=== PATIENT | male | born 1965 | race Hispanic/Latino ===

== ENCOUNTER 2021-01-13 21:53 | Inpatient (IN) | payer OTHER ==
[2021-01-13] MEDS: LIDOCAINE (2%) 20 MG/1 ML VIAL 20 ML MDV INFILTRATI ONE ×2 (10:38→22:38)
[2021-01-13] MEDS: fentaNYL 100 MCG/2 ML INJ ONE ×3 (10:39→22:58)
[2021-01-13] MEDS: MIDAZOLAM 2 MG/2 ML INJ ONE ×3 (10:39→22:59)
[2021-01-13] MEDS: HEPARIN 10,000 UNITS/10 ML VIAL ONE ×5 (10:40→23:13)
[2021-01-13] MEDS: VERAPAMIL 5 MG/2 ML INJ ONE ×2 (10:41→22:41)
[2021-01-13] MEDS ORDERED: HEPARIN/ 0.45% NACL DRIP 25,000 UNIT/500 ML BAG IV SCH (22:00)
[2021-01-13] MEDS ORDERED: HEPARIN 10,000 UNITS/10 ML VIAL IV ONE (22:00)
[2021-01-13] MEDS ORDERED: HEPARIN 10,000 UNITS/10 ML VIAL IV PRN ×2 (22:00→22:21)
[2021-01-13] MEDS ORDERED: ONDANSETRON 4 MG/2 ML INJ IV ONE (22:00)
[2021-01-13] MEDS ORDERED: SODIUM CHLORIDE 0.9% 500 ML 500 ML IV ONE (22:02)
[2021-01-13] MEDS ORDERED: NITROGLYCERIN 0.4 MG TAB SUBL SL PRN (22:02)
[2021-01-13] MEDS ORDERED: MORPHINE 4 MG/1 ML INJ IV ONE (22:02)
--- NOTE | 2021-01-13 22:15 | Emergency Department Report ---
ED Chest Pain HPI - General Chief Complaint: Chest Pain Stated Complaint: code stemi PUI?: No Time Seen by Provider: 01/13/21 21:59 Source: patient, EMS (Verbal report received from emergency medical services. EMS documentation not available at time of chart dictation ), RN notes reviewed Mode of arrival: Stretcher Limitations: Physical Limitation - History of Present Illness Initial Comments: The patient was evaluated in the emergency department for symptoms described in the history of present illness. He/she was evaluated in the context of the global COVID-19 pandemic, which necessitated consideration that the patient might be at risk for infection with the virus that causes COVID-19. Institutional protocols and algorithms that pertain to the evaluation of patients at risk for COVID-19 are in a state of rapid change based on information released by regulatory bodies including the CDC and federal and state organizations. These policies and algorithms were followed during the patient's care in the emergency department. Please note that these policies, procedures and recommendations changed on a rapid basis. The patient is a 55-year-old gentleman who is not known to myself previously. He has a past medical history of DVT, pulmonary embolism and is maintained on Eliquis. He is obese, and also is up-to-date with COVID-19 vaccination. The patient is brought to the hospital by emergency medical services as an [id number] code STEMI. Patient complains of sudden central and left-sided chest pain, associated with nausea and diaphoresis. A prehospital EKG was consistent with high lateral STEMI. The EKG was transmitted to ourselves, and in turn, interpreted by myself as a code STEMI, and then transmitted to our neonatal specialist, Dr. Meléndez, who evaluated the EKG at 9:43 PM. Code STEMI was activated overhead prehospital. EMS gave nitroglycerin and aspirin in the field. The patient denies headache, abdominal pain, hematemesis, bright red blood per rectum. He reports that he was diagnosed at [facility] last month with a DVT and PE. It appears that these are unprovoked. The patient states he last took his Eliquis earlier on today. The patient currently rates his pain as 9 out of 10. In discussion with Dr. Meléndez, aspirin was already given, heparin was recommend ed. Currently, we are awaiting arrival of the cardiac catheterization lab team. Critical care physician, Dr. Cohen, has authorized admission to the ICU for post catheterization care. Hospital physician, Dr. Perkins to admit to IMS Complaint: chest pain -: Sudden, minutes(s) Onset: during rest Pain Location: substernal, left chest Severity: severe Quality: aching Consistency: constant Improves With: nitroglycerin Worsens With: nothing re: nausea, diaphoresis, dyspnea Treatments Prior to Arrival: aspirin, nitroglycerin Aspirin use within the Past 7 Days: (1) Yes - Related Data On Oral Contraceptives: No Allergies Allergy/AdvReac Type Severity Reaction Status Date / Time No Known Allergies Allergy Verified 01/13/21 22:12 Heart Score - HEART Score History: Highly suspicious EKG: Significant ST-depression Age: 45-65 Risk factors: > 3 risk factors or hx of atherosclerotic disease Troponin: < normal limit HEART Score: 7 - EKG Read Time Time EKG Completed: 21:57 EKG Read Time: 21:57 - Critical Actions Critical Actions: >7 pts:50-65% risk of adverse cardiac event. Early invasive measures ED Review of Systems ROS: Stated complaint: CVA Other details as noted in HPI Constitutional: diaphoresis Eyes: denies: eye discharge ENT: denies: epistaxis Respiratory: denies: cough Cardiovascular: chest pain Gastrointestinal: nausea. denies: abdominal pain, hematemesis, melena, hematochezia Musculoskeletal: denies: back pain Neurological: weakness Psychiatric: anxiety Hematological/Lymphatic: denies: easy bleeding ED Past Medical Hx - Social History Smoking Status: Current Every Day Smoker ED Physical Exam - General Limitations: Physical Limitation General appearance: alert, anxious, in distress, obese - Head Head exam: Present: atraumatic, normocephalic - Eye Eye exam: Present: normal appearance, EOMI. Absent: nystagmus - ENT ENT exam: Present: normal exam, normal orophraynx, mucous membranes moist, normal external ear exam - Neck Neck exam: Present: normal inspection, full ROM. Absent: tenderness, meningism us - Respiratory Respiratory exam: Present: normal lung sounds bilaterally. Absent: respiratory distress, wheezes, rales, rhonchi, stridor, decreased breath sounds - Cardiovascular Cardiovascular Exam: Present: regular rate, normal rhythm, normal heart sounds. Absent: bradycardia, tachycardia, irregular rhythm, systolic murmur, diastolic murmur, rubs, gallop - GI/Abdominal GI/Abdominal exam: Present: soft. Absent: distended, tenderness, guarding, rebound, rigid, pulsatile mass - Rectal Rectal exam: Present: deferred - Extremities Exam Extremities exam: Present: normal inspection, full ROM, other (2+ pulses noted in the bilateral upper and lower extremities. There is no palpable cord. negative Homans sign. Muscular compartments are soft. The pelvis is stable.). Absent: pedal edema, calf tenderness - Back Exam Back exam: Present: normal inspection, full ROM. Absent: tenderness, CVA tenderness (R), CVA tenderness (L), paraspinal tenderness, vertebral tenderness - Neurological Exam Neurological exam: Present: alert, other (No facial droop. Tongue midline. Extraocular movements intact bilaterally. Facial sensation intact to light touch in V1, V2, V3 distribution bilaterally. 5 and a 5 strength in 4 extremities. Sensation intact to light touch in 4 extremities.) - Psychiatric Psychiatric exam: Present: anxious - Skin Skin exam: Present: warm, dry, intact, normal color. Absent: rash ED Course Vital Signs 01/13/21 22:03 Pulse Rate 84 Respiratory 18 Rate Blood Pressure 186/99 O2 Sat by Pulse 99 Oximetry - Reevaluation(s) Reevaluation #1: 01/13/21 22:17 Due to the time sensitive nature of code STEMI, and the patient's current condition, patient went to the cardiac catheterization lab before laboratory studies and x-rays have resulted, and obtained, respectively. We will therefore defer follow-up of these values to the inpatient team. The patient provided verbal consent to have all details of his medical care discussed with his family. DANIE score - Danie Score Age > 65: (0) No Aspirin use within the Past 7 Days: (1) Yes 3 or more CAD Risk Factors: (1) Yes 2 or more Angina events in past 24 hrs: (1) Yes Known CAD with more than 50% Stenosis: (0) No Elevated Cardiac Markers: (0) No ST Deviation Greater than 0.5mm: (1) Yes DANIE Score: 4 ED Medical Decision Making - Lab Data Result diagrams: 01/14/21 02:19 01/14/21 02:19 Vital Signs 01/13/21 22:03 Pulse Rate 84 Respiratory 18 Rate Blood Pressure 186/99 O2 Sat by Pulse 99 Oximetry Lab Results 0901/13/21 01/13/21 Range/Units 22:03 22:03 22:03 WBC 12.2 H (4.5-11.0) K/mm3 RBC 5.36 H (3.65-5.03) M/mm3 Hgb 15.6 H (11.8-15.2) gm/dl Hct 46.8 H (35.5-45.6) % MCV 87 (84-94) fl MCH 29 (28-32) pg MCHC 33 (32-34) % RDW 15.3 H (13.2-15.2) % Plt Count 313 (140-440) K/mm3 Lymph # (Auto) Dry Cure Worker Add Manual Diff Complete Total Counted 100 Seg Neuts % (Manual) 42.0 (40.0-70.0) % Lymphocytes % (Manual) 48.0 H (13.4-35.0) % Monocytes % (Manual) 8.0 H (0.0-7.3) % Eosinophils % (Manual) 1.0 (0.0-4.3) % Basophils % (Manual) 1.0 (0.0-1.8) % Nucleated RBC % Not Reportable Seg Neutrophils # Man 5.1 (1.8-7.7) K/mm3 Band Neutrophils # 0.0 K/mm3 Lymphocytes # (Manual) 5.9 H (1.2-5.4) K/mm3 Abs React Lymphs (Man) 0.0 K/mm3 Monocytes # (Manual) 1.0 H (0.0-0.8) K/mm3 Eosinophils # (Manual) 0.1 (0.0-0.4) K/mm3 Basophils # (Manual) 0.1 (0.0-0.1) K/mm3 Metamyelocytes # 0.0 K/mm3 Myelocytes # 0.0 K/mm3 Promyelocytes # 0.0 K/mm3 Blast Cells # 0.0 K/mm3 WBC Morphology Not Reportable Hypersegmented Neuts Not Reportable Hyposegmented Neuts Not Reportable Hypogranular Neuts Not Reportable Smudge Cells Not Reportable Toxic Granulation Not Reportable Toxic Vacuolation Not Reportable Dohle Bodies Not Reportable Pelger-Huet Anomaly Not Reportable Ketty Rods Not Reportable Platelet Estimate Consistent w auto Clumped Platelets Not Reportable Plt Clumps, EDTA Not Reportable Large Platelets Not Reportable Giant Platelets Not Reportable Platelet Satelliting Not Reportable Plt Morphology Comment Not Reportable RBC Morphology Not Reportable Dimorphic RBCs Not Reportable Polychromasia Not Reportable Hypochromasia Not Reportable Poikilocytosis 1+ Anisocytosis 1+ Microcytosis Not Reportable Macrocytosis Not Reportable Spherocytes Not Reportable Pappenheimer Bodies Not Reportable Sickle Cells Not Reportable Target Cells 1+ Tear Drop Cells Not Reportable Ovalocytes Not Reportable Helmet Cells Not Reportable Ca-Wyandanch Bodies Not Reportable [place] Rings Not Reportable Barb Cells Not Reportable Bite Cells Not Reportable Crenated Cell Not Reportable Elliptocytes Not Reportable Acanthocytes (Spur) Not Reportable Rouleaux Not Reportable Hemoglobin C Crystals Not Reportable Schistocytes Not Reportable Malaria parasites Not Reportable Apolinar Bodies Not Reportable Hem Pathologist Commnt No PT 13.3 (12.2-14.9) Sec. INR 0.95 (0.87-1.13) APTT 25.7 (24.2-36.6) Sec. Sodium 141 (137-145) mmol/L Potassium 3.9 (3.6-5.0) mmol/L Chloride 103.3 (98-107) mmol/L Carbon Dioxide 26 (22-30) mmol/L Anion Gap 16 mmol/L BUN 22 H (9-20) mg/dL Creatinine 0.9 (0.8-1.3) mg/dL Estimated GFR > 60 ml/min BUN/Creatinine Ratio 24 % Glucose 158 H (75-100) mg/dL Calcium 9.7 (8.4-10.2) mg/dL Total Creatine Kinase 279 H (55-170) units/L CK-MB (CK-2) 2.2 (0.0-4.0) ng/mL CK-MB (CK-2) Rel Index 0.7 (0-4) Troponin T < 0.010 (0.00-0.029) ng/mL Blood Type Antibody Screen 01/13/21 Range/Units 22:03 WBC (4.5-11.0) K/mm3 RBC (3.65-5.03) M/mm3 Hgb (11.8-15.2) gm/dl Hct (35.5-45.6) % MCV (84-94) fl MCH (28-32) pg MCHC (32-34) % RDW (13.2-15.2) % Plt Count (140-440) K/mm3 Lymph # (Auto) Add Manual Diff Total Counted Seg Neuts % (Manual) (40.0-70.0) % Lymphocytes % (Manual) (13.4-35.0) % Monocytes % (Manual) (0.0-7.3) % Eosinophils % (Manual) (0.0-4.3) % Basophils % (Manual) (0.0-1.8) % Nucleated RBC % Seg Neutrophils # Man (1.8-7.7) K/mm3 Band Neutrophils # K/mm3 Lymphocytes # (Manual) (1.2-5.4) K/mm3 Abs React Lymphs (Man) K/mm3 Monocytes # (Manual) (0.0-0.8) K/mm3 Eosinophils # (Manual) (0.0-0.4) K/mm3 Basophils # (Manual) (0.0-0.1) K/mm3 Metamyelocytes # K/mm3 Myelocytes # K/mm3 Promyelocytes # K/mm3 Blast Cells # K/mm3 WBC Morphology Hypersegmented Neuts Hyposegmented Neuts Hypogranular Neuts Smudge Cells Toxic Granulation Toxic Vacuolation Dohle Bodies Pelger-Huet Anomaly Ketty Rods Platelet Estimate Clumped Platelets Plt Clumps, EDTA Large Platelets Giant Platelets Platelet Satelliting Plt Morphology Comment RBC Morphology Dimorphic RBCs Polychromasia Hypochromasia Poikilocytosis Anisocytosis Microcytosis Macrocytosis Spherocytes Pappenheimer Bodies Sickle Cells Target Cells Tear Drop Cells Ovalocytes Helmet Cells Ca-Wyandanch Bodies [place] Rings [place] Cells Bite Cells Crenated Cell Elliptocytes Acanthocytes (Spur) Rouleaux Hemoglobin C Crystals Schistocytes Malaria parasites Apolinar Bodies Hem Pathologist Commnt PT (12.2-14.9) Sec. INR (0.87-1.13) APTT (24.2-36.6) Sec. Sodium (137-145) mmol/L Potassium (3.6-5.0) mmol/L Chloride (98-107) mmol/L Carbon Dioxide (22-30) mmol/L Anion Gap mmol/L BUN (9-20) mg/dL Creatinine (0.8-1.3) mg/dL Estimated GFR ml/min BUN/Creatinine Ratio % Glucose (75-100) mg/dL Calcium (8.4-10.2) mg/dL Total Creatine Kinase (55-170) units/L CK-MB (CK-2) (0.0-4.0) ng/mL CK-MB (CK-2) Rel Index (0-4) Troponin T (0.00-0.029) ng/mL Blood Type B POSITIVE Antibody Screen Negative - EKG Data -: EKG Interpreted by Me - EKG Data When compared to previous EKG there are: previous EKG unavailable Interpretation: acute RI 01/13/21 22:14 Prehospital EKG consistent with STEMI. ER EKG, interpreted at 21: 57. Sinus rhythm, with a left axis deviation. There is a normal P wave axis. There is ST depression in the inferior leads. There is ST elevation in the high lateral and septal leads. This EKG is abnormal. This EKG is consistent with a STEMI. - Radiology Data Radiology results: pending Critical Care Time: Yes Critical care time in (mins) excluding proc time.: 35 Critical care attestation.: If time is entered above; I have spent that time in minutes in the direct care of this critically ill patient, excluding procedure time. Critical Care Time: Critical care time includes multiple bedside reevaluations, interpretation of EKG, laboratory studies and radiology studies, time spent caring for a patient with an acute myocardial infarction, requiring activation of the cardiac catheterization lab, administration of nitroglycerin, discussion with cardiology, hospital medicine, and critical care. This does not include procedure time. ED Disposition Clinical Impression: STEMI (ST elevation myocardial infarction) Disposition: ADMITTED INPATIENT Is pt being admited?: Yes Does the pt Need Aspirin: No (Given by EMS prehospital.) Condition: Critical
[2021-01-13 22:16] LABS: Hematocrit 46.8 % (35.5-45.6); Hemoglobin 15.6 gm/dl (11.8-15.2); Mean Corpuscular HGB Conc 33 % (32-34); Mean Corpuscular Volume 87 fl (84-94); Platelet Count 313 K/mm3 (140-440); Red Blood Count 5.36 M/mm3 (3.65-5.03); Red Cell Distribution Width 15.3 % (13.2-15.2)
[2021-01-13] MEDS ORDERED: MORPHINE 2 MG/1 ML INJ IV PRN (22:21)
[2021-01-13] MEDS ORDERED: ACETAMINOPHEN 325 MG TAB PO PRN (22:21)
[2021-01-13] MEDS ORDERED: HYDROmorphone 1 MG/1 ML INJ IV ONE (22:21)
[2021-01-13] MEDS ORDERED: HEPARIN/NS 5000 UNIT/500ML 1,000 ML IR ONE (22:24)
[2021-01-13] MEDS ORDERED: NITROGLYCERIN SYRINGE 3 ML ONE (22:25)
[2021-01-13 22:27] LABS: INR 0.95 (0.87-1.13)
[2021-01-13 22:28] LABS: Partial Thromboplastin Time 25.7 Sec. (24.2-36.6)
[2021-01-13] MEDS ORDERED: SODIUM CHLORIDE 0.9% 1000 ML 1,000 ML ONE (22:28)
[2021-01-13] MEDS ORDERED: SODIUM CHLORIDE 0.9% 1000 ML 1,000 ML IV SCH ×2 (22:30→23:30)
[2021-01-13 22:34] LABS: Creatine Kinase MB 2.2 ng/mL (0.0-4.0)
--- NOTE | 2021-01-13 22:34 | History and Physical Report ---
History of Present Illness Date of examination: 01/13/21 Date of admission: 01/13/21 Chief complaint: Chest pain History of present illness: 55 years old male with history of DVT pulmonary embolism on Eliquis was brought to the hospital because of sudden onset of central and left-sided chest pain 12/29 as stated nausea and diaphoresis. Subsequently patient was brought to the emergency room by EMS as an out of hospital code STEMI. A prehospital EKG was consistent with high lateral STEMI. Subsequently code STEMI was initiated and ER doctor discussed the case with Dr. Meléndez who evaluated the EKG at 9:43 PM. Patient is going to the [facility] for heart cath. Patient is on Eliquis for pulmonary embolism patient took the medication earlier today. Patient denied any abdominal pain no hematemesis no headache no shortness of breath Interventional radiology Dr. Meléndez recommend aspirin and heparin drip. All the labs are pending. Case discussed with critical care Dr. Cohen who agreed to the admission to the ICU for post catheterization care. Med rec was not available. Past History Past Medical History: DVT, pulmonary embolism Medications and Allergies Allergies Allergy/AdvReac Type Severity Reaction Status Date / Time No Known Allergies Allergy Verified 01/13/21 22:12 Active Meds: Active Medications Heparin Sodium (Porcine) (Heparin 10,000 Units/10 Ml Vial) 0 unit IV Q6H PRN; Protocol PRN Reason: Anti-Xa Assay less than 0.1 un Heparin Sodium/Sodium Chloride (Heparin/ 0.45% Nacl-25,000 Unit/500 Ml) 25,000 unit in 500 mls @ 18 mls/hr IV TITRATE COOPER; Protocol Sodium Chloride (Nacl 0.9% 500 Ml) 500 mls @ 999 mls/hr IV ONCE ONE Stop: 01/13/21 22:32 Nitroglycerin (Nitroglycerin 0.4 Mg Tab Subl) 0.4 mg SL .Q5MIN PRN PRN Reason: Chest Pain Review of Systems All systems: negative Cardiovascular: chest pain, other (Diaphoresis) Gastrointestinal: nausea, vomiting Exam - Constitutional Vitals: Temp Pulse Resp BP Pulse Ox 84 18 186/99 99 01/13/21 22:03 01/13/21 22:03 01/13/21 22:03 01/13/21 22:03 General appearance: Present: no acute distress, well-nourished - EENT Eyes: Present: PERRL ENT: hearing intact, clear oral mucosa - Neck Neck: Present: supple, normal ROM - Respiratory Respiratory effort: normal Respiratory: bilateral: diminished - Cardiovascular Heart Sounds: Present: S1 & S2. Absent: rub, click - Extremities Extremities: pulses symmetrical, No edema Peripheral Pulses: within normal limits - Abdominal General gastrointestinal: Present: soft, non-tender, non-distended, normal bowel sounds Male genitourinary: Present: normal - Integumentary Integumentary: Present: clear, warm, dry - Musculoskeletal Musculoskeletal: gait normal, strength equal bilaterally - Psychiatric Psychiatric: appropriate mood/affect, intact judgment & insight - Neurologic Neurologic: CNII-XII intact, moves all extremities HEART Score - HEART Score EKG: Significant ST-depression Age: 45-65 Risk factors: > 3 risk factors or hx of atherosclerotic disease - Critical Actions Critical Actions: >7 pts:50-65% risk of adverse cardiac event. Early invasive measures Results - Labs CBC & Chem 7: 01/13/21 22:03 Labs: Laboratory Last Values WBC 12.2 K/mm3 (4.5-11.0) H 01/13/21 22:03 RBC 5.36 M/mm3 (3.65-5.03) H 01/13/21 22:03 Hgb 15.6 gm/dl (11.8-15.2) H 01/13/21 22:03 Hct 46.8 % (35.5-45.6) H 01/13/21 22:03 MCV 87 fl (84-94) 01/13/21 22:03 MCH 29 pg (28-32) 01/13/21 22:03 MCHC 33 % (32-34) 01/13/21 22:03 RDW 15.3 % (13.2-15.2) H 01/13/21 22:03 Plt Count 313 K/mm3 (140-440) 01/13/21 22:03 Lymph # (Auto) Ham Rolling Machine Operator 01/13/21 22:03 PT 13.3 Sec. (12.2-14.9) 01/13/21 22:03 INR 0.95 (0.87-1.13) 01/13/21 22:03 APTT 25.7 Sec. (24.2-36.6) 01/13/21 22:03 Assessment and Plan VTE prophylaxis?: Chemical Plan of care discussed with patient/family: Yes - Patient Problems (1) STEMI (ST elevation myocardial infarction) Status: Acute Plan to address problem: Admit the patient to the critical care unit. Aspirin 325 mg p.o. daily. Lipitor 80 mg p.o. daily. Nitroglycerin 0.4 mg as needed. Morphine 2 mg IV every 4 hours as needed. Patient is on heparin drip. Patient is going for cardiac cath. Post-cath order will be written by freight sales broker. We already consulted critical care Dr. Cohen. Recheck CBC BMP in the morning (2) Pulmonary embolism Status: Acute Plan to address problem: Patient is on Eliquis unknown dose for PE. Patient took the last dose this morning. We will put the patient on heparin drip will resume the Eliquis when okay with the cardiology. (3) DVT (deep venous thrombosis) Status: Acute Plan to address problem: Patient is on Eliquis for DVT unknown dose. Patient is on heparin drip for now. Will resume the Eliquis when okay with the critical care and gasket supervisor (4) DVT prophylaxis Status: Acute Plan to address problem: Heparin drip for DVT prophylaxis. Pepcid 20 mg p.o. twice daily for GI prophylaxis (5) Full code status Status: Acute Plan to address problem: Patient is a full CODE STATUS
[2021-01-13 22:35] LABS: BUN/Creatinine Ratio 24; Blood Urea Nitrogen 22 mg/dL (9-20); Calcium 9.7 mg/dL (8.4-10.2); Hemolysis Index 3
[2021-01-13 22:48] LABS: Anisocytosis 1+; Total Cells Counted 100
[2021-01-13 22:49] LABS: Platelet Estimate Consistent w Auto; Poikilocytosis 1+; Target Cells 1+
[2021-01-13] MEDS ORDERED: HEPARIN 10,000 UNITS/10 ML VIAL ONE (22:57)
[2021-01-13] MEDS ORDERED: PHENYLEPHRINE/NS 1,000 MCG/10 ML SYRINGE (OR USE) IV ONE (23:00)
[2021-01-13] MEDS ORDERED: ATROPINE 0.1% (1 MG/10 ML) CARDIAC SYRINGE ONE (23:00)
[2021-01-13] MEDS ORDERED: LIDOCAINE PF 100 MG/5 ML (CARDIAC SYRINGE) IV ONE (23:00)
[2021-01-13] MEDS ORDERED: EPINEPHrine 1 MG/10 ML SYRINGE ONE (23:00)
[2021-01-13] MEDS ORDERED: ALUM-MAG HYDROXIDE-SIMETHICONE 200-200-20MG/5ML ORAL LIQD 30 ML ONE (23:18)
[2021-01-13] MEDS ORDERED: TICAGRELOR 90 MG TAB ONE (23:18)
[2021-01-13] MEDS ORDERED: HYDROcodone/ACETAMINOPHEN 5-325 MG TAB PO PRN (23:21)
[2021-01-13] MEDS ORDERED: PANTOPRAZOLE 40 MG TAB PO ONE (23:26)
--- NOTE | 2021-01-13 23:36 | Consultation ---
History of Present Illness Consult date: 01/13/21 Requesting physician: MAX MULLINS Consult reason: chest pain History of present illness: Patient is a 55-year-old male with no prior cardiac history. He has a history of pulmonary embolism recently diagnosed 1 month ago. He is on maintenance Eliquis therapy and he took 1 dose tonight. Patient apparently was working on a refrigerator was going up and down the ladder and suddenly he developed severe chest pain associated with diaphoresis and mild shortness of breath. EMT were called and he had an EKG done that showed acute anterior wall TN. Code STEMI was activated. Patient was taken to the [facility] and he underwent successful Intervention of the 100% occluded LAD and also intervention of a tight OM as well. Post PCI patient is doing well and is being admitted to the hospital. Currently reports his chest pain is much better post procedure Past History Past Medical History: DVT, pulmonary embolism Past Surgical History: No surgical history Social history: smoking Family history: no significant family history Medications and Allergies Allergies Allergy/AdvReac Type Severity Reaction Status Date / Time No Known Allergies Allergy Verified 01/13/21 22:12 Active Meds: Active Medications Acetaminophen (Acetaminophen 325 Mg Tab) 650 mg PO Q4H PRN PRN Reason: Pain, Mild (1-3) Hydrocodone Bitart/Acetaminophen (Hydrocodone/Acetaminophen 5-325 Mg Tab) 1 each PO Q6H PRN PRN Reason: Pain, Moderate (4-6) Aspirin (Aspirin 81 Mg Tab Chew) 81 mg PO QDAY COOPER Atorvastatin Calcium (Atorvastatin 40 Mg Tab) 80 mg PO QHS COOPER Carvedilol (Carvedilol 6.25 Mg Tab) 6.25 mg PO BID COOPER Sodium Chloride (Nacl 0.9% 1000 Ml) 1,000 mls @ 100 mls/hr IV DIRECT COOPER Morphine Sulfate (Morphine 2 Mg/1 Ml Inj) 2 mg IV Q4H PRN PRN Reason: Pain, Moderate (4-6) Nitroglycerin (Nitroglycerin 0.4 Mg Tab Subl) 0.4 mg SL .Q5MIN PRN PRN Reason: Chest Pain Ticagrelor (Ticagrelor 90 Mg Tab) 90 mg PO BID COOPER Review of Systems All systems: negative (As mentioned in the H&P) Physical Examination Vital Signs Pulse Resp BP Pulse Ox 84 18 186/99 99 01/13/21 22:03 01/13/21 22:03 01/13/21 22:03 01/13/21 22:03 General appearance: obese HEENT: Positive: Normocephaly Neck: Positive: trachea midline Cardiac: Positive: Reg Rate and Rhythm Lungs: Positive: clear to auscultation Neuro: Positive: Grossly Intact Abdomen: Positive: Unremarkable Skin: Positive: Clear Extremities: Present: normal Results 01/13/21 22:03 01/13/21 22:03 Cardiac Enzymes 01/13/21 Range/Units 22:03 CK-MB (CK-2) 2.2 (0.0-4.0) ng/mL Coagulation 01/13/21 Range/Units 22:03 PT 13.3 (12.2-14.9) Sec. INR 0.95 (0.87-1.13) APTT 25.7 (24.2-36.6) Sec. CBC 01/13/21 Range/Units 22:03 WBC 12.2 H (4.5-11.0) K/mm3 RBC 5.36 H (3.65-5.03) M/mm3 Hgb 15.6 H (11.8-15.2) gm/dl Hct 46.8 H (35.5-45.6) % Plt Count 313 (140-440) K/mm3 Lymph # (Auto) Door Maker Comprehensive Metabolic Panel 01/13/21 Range/Units 22:03 Sodium 141 (137-145) mmol/L Potassium 3.9 (3.6-5.0) mmol/L Chloride 103.3 (98-107) mmol/L Carbon Dioxide 26 (22-30) mmol/L BUN 22 H (9-20) mg/dL Creatinine 0.9 (0.8-1.3) mg/dL Glucose 158 H (75-100) mg/dL Calcium 9.7 (8.4-10.2) mg/dL EKG interpretations - Telemetry EKG Rhythm: Sinus Rhythm (With acute anterior wall ST elevation and reciprocal depression inferior leads) Assessment and Plan 1. Chest pain acute anterior ST elevation TN 2. Coronary angioplasty status status post primary PCI of the 100% occluded LAD 3. Coronary angioplasty status status post PCI of the OM 4. History of recent PE on maintenance Eliquis therapy 5. Morbid obesity Plan 1. Aspirin, Brilinta, beta-blockers and high intensity statins 2. Continue Eliquis. 3. Routine pharmacotherapy post PCI. 4. Most likely patient be on triple therapy for at least a month including aspirin Brilinta and Eliquis. After a month most likely patient can stop aspirin continue Brilinta and Eliquis per
[2021-01-14 02:54] LABS: Basophils # (Auto) 0.1 K/mm3 (0.0-0.1); Basophils % (Auto) 0.4 % (0.0-1.8); Eosinophils % (Auto) 0.3 % (0.0-4.3); Hematocrit 45.4 % (35.5-45.6); Hemoglobin 15.1 gm/dl (11.8-15.2); Lymphocytes % (Auto) 12.4 % (13.4-35.0); Mean Corpuscular HGB Conc 33 % (32-34); Mean Corpuscular Volume 88 fl (84-94); Monocytes # (Auto) 0.9 K/mm3 (0.0-0.8); Monocytes % (Auto) 5.5 % (0.0-7.3); Platelet Count 258 K/mm3 (140-440); Red Blood Count 5.14 M/mm3 (3.65-5.03); Red Cell Distribution Width 15.6 % (13.2-15.2)
[2021-01-14 03:03] LABS: INR 1.17 (0.87-1.13)
[2021-01-14 03:06] LABS: Partial Thromboplastin Time 84.9 Sec. (24.2-36.6)
[2021-01-14 03:16] LABS: BUN/Creatinine Ratio 26; Blood Urea Nitrogen 21 mg/dL (9-20); Calcium 8.9 mg/dL (8.4-10.2); Hemolysis Index 7
[2021-01-14 03:34] LABS: Chol/HDL Ratio 5.06 %; HDL Cholesterol 43 mg/dL (40-59); LDL Cholesterol,Direct 166 mg/dL (50-130)
[2021-01-14] MEDS: carvediloL 6.25 MG TAB PO SCH ×2 (03:45→09:23)
[2021-01-14] MEDS: NITROGLYCERIN 0.4 MG TAB SUBL SL PRN ×3 (05:06→05:20)
--- NOTE | 2021-01-14 09:12 | Progress Note ---
Assessment and Plan Assessment and plan: -- STEMI (ST elevation myocardial infarction) Current visit: yes status: Acute Acute anterior ST elevation [place]; Patient had emergency left heart catheterization s/p coronary angioplasty and PCI of LAD s/p coronary angioplasty and PCI of OM Cardiology recommend triple therapy, aspirin, Brilinta and Eliquis for at least 1 month Aspirin can be discontinued after 1 month and to continue Brilinta and Eliquis per protocol High intensity statins Cardiac diet --h/o Pulmonary embolism and DVT Current visit : yes status: Chronic Continue Eliquis along with Brilinta and aspirin per cardiology[3 drugs for 1 month] DC aspirin after 1 month --Hypertension; moderate control Current visit :yes status: Chronic continue current antihypertensives and as needed medications --Dyslipidemia; Current visit ; yes status: Chronic Continue statin, low-cholesterol diet, --Obesity; BMI 38.6 Current visit ; yes status: Chronic Patient needs dietary modification exercise as tolerated and weight reduction when medically stable Out patient pulmonary evaluation to rule out obstructive sleep apnea May benefit from outpatient bariatric surgery consultation for weight reduction when medically stable --DVT prophylaxis Status: Acute Continue Eliquis -- Full code status We will closely monitor the patient and adjust management as needed Plan of care reviewed with the patient Consults and recommendations noted and appreciated Patient is stable to be transferred out of ICU if okay with cardiology Critical care time 45 minutes History Interval history: I have seen and examined the patient at the bedside Patient's chart and medications reviewed Patient with ST elevation AR status post PCI of LAD and OM Patient feels better Denies chest pain or shortness of breath Hospitalist Physical - Constitutional Vitals: Temp Pulse Resp BP Pulse Ox 99.4 F 68 19 157/90 96 01/14/21 08:07 01/14/21 08:01 01/14/21 08:01 01/14/21 08:01 01/14/21 08:01 General appearance: Present: no acute distress, well-nourished, obese - EENT Eyes: Present: PERRL, EOM intact - Neck Neck: Present: supple, normal ROM - Respiratory Respiratory effort: normal Respiratory: bilateral: diminished, negative: rales, rhonchi, wheezing - Cardiovascular Rhythm: regular Heart Sounds: Present: S1 & S2 - Extremities Extremities: no ischemia, No edema - Abdominal General gastrointestinal: soft, non-tender, non-distended, normal bowel sounds - Integumentary Integumentary: Present: clear, warm - Psychiatric Psychiatric: appropriate mood/affect, cooperative - Neurologic Neurologic: CNII-XII intact, moves all extremities HEART Score - HEART Score EKG: Significant ST-depression Age: 45-65 Risk factors: > 3 risk factors or hx of atherosclerotic disease Troponin: Troponin T 3.070 ng/mL (0.00-0.029) H* D 01/14/21 02:19 Troponin: < normal limit - Critical Actions Critical Actions: >7 pts:50-65% risk of adverse cardiac event. Early invasive measures Results - Labs CBC & Chem 7: 01/14/21 02:19 01/14/21 02:19 Labs: Laboratory Last Values WBC 16.5 K/mm3 (4.5-11.0) H 01/14/21 02:19 RBC 5.14 M/mm3 (3.65-5.03) H 01/14/21 02:19 Hgb 15.1 gm/dl (11.8-15.2) 01/14/21 02:19 Hct 45.4 % (35.5-45.6) 01/14/21 02:19 MCV 88 fl (84-94) 01/14/21 02:19 MCH 29 pg (28-32) 01/14/21 02:19 MCHC 33 % (32-34) 01/14/21 02:19 RDW 15.6 % (13.2-15.2) H 01/14/21 02:19 Plt Count 258 K/mm3 (140-440) 01/14/21 02:19 Lymph % (Auto) 12.4 % (13.4-35.0) L 01/14/21 02:19 [place] % (Auto) 5.5 % (0.0-7.3) 01/14/21 02:19 Eos % (Auto) 0.3 % (0.0-4.3) 01/14/21 02:19 Baso % (Auto) 0.4 % (0.0-1.8) 01/14/21 02:19 Lymph # (Auto) 2.0 K/mm3 (1.2-5.4) 01/14/21 02:19 [place] # (Auto) 0.9 K/mm3 (0.0-0.8) H 01/14/21 02:19 Eos # (Auto) 0.0 K/mm3 (0.0-0.4) 01/14/21 02:19 Baso # (Auto) 0.1 K/mm3 (0.0-0.1) 01/14/21 02:19 Add Manual Diff Complete 01/13/21 22:03 Total Counted 100 01/13/21 22:03 Seg Neutrophils % 81.4 % (40.0-70.0) H 01/14/21 02:19 Seg Neuts % (Manual) 42.0 % (40.0-70.0) 01/13/21 22:03 Lymphocytes % (Manual) 48.0 % (13.4-35.0) H 01/13/21 22:03 Monocytes % (Manual) 8.0 % (0.0-7.3) H 01/13/21 22:03 Eosinophils % (Manual) 1.0 % (0.0-4.3) 01/13/21 22:03 Basophils % (Manual) 1.0 % (0.0-1.8) 01/13/21 22:03 Nucleated RBC % Not Reportable 01/13/21 22:03 Seg Neutrophils # 13.5 K/mm3 (1.8-7.7) H 01/14/21 02:19 Seg Neutrophils # Man 5.1 K/mm3 (1.8-7.7) 01/13/21 22:03 Band Neutrophils # 0.0 K/mm3 01/13/21 22:03 Lymphocytes # (Manual) 5.9 K/mm3 (1.2-5.4) H 01/13/21 22:03 Abs React Lymphs (Man) 0.0 K/mm3 01/13/21 22:03 Monocytes # (Manual) 1.0 K/mm3 (0.0-0.8) H 01/13/21 22:03 Eosinophils # (Manual) 0.1 K/mm3 (0.0-0.4) 01/13/21 22:03 Basophils # (Manual) 0.1 K/mm3 (0.0-0.1) 01/13/21 22:03 Metamyelocytes # 0.0 K/mm3 01/13/21 22:03 Myelocytes # 0.0 K/mm3 01/13/21 22:03 Promyelocytes # 0.0 K/mm3 01/13/21 22:03 Blast Cells # 0.0 K/mm3 01/13/21 22:03 WBC Morphology Not Reportable 01/13/21 22:03 Hypersegmented Neuts Not Reportable 01/13/21 22:03 Hyposegmented Neuts Not Reportable 01/13/21 22:03 Hypogranular Neuts Not Reportable 01/13/21 22:03 Smudge Cells Not Reportable 01/13/21 22:03 Toxic Granulation Not Reportable 01/13/21 22:03 Toxic Vacuolation Not Reportable 01/13/21 22:03 Dohle Bodies Not Reportable 01/13/21 22:03 Pelger-Huet Anomaly Not Reportable 01/13/21 22:03 Ketty Rods Not Reportable 01/13/21 22:03 Platelet Estimate Consistent w auto 01/13/21 22:03 Clumped Platelets Not Reportable 01/13/21 22:03 Plt Clumps, EDTA Not Reportable 01/13/21 22:03 Large Platelets Not Reportable 01/13/21 22:03 Giant Platelets Not Reportable 01/13/21 22:03 Platelet Satelliting Not Reportable 01/13/21 22:03 Plt Morphology Comment Not Reportable 01/13/21 22:03 RBC Morphology Not Reportable 01/13/21 22:03 Dimorphic RBCs Not Reportable 01/13/21 22:03 Polychromasia Not Reportable 01/13/21 22:03 Hypochromasia Not Reportable 01/13/21 22:03 Poikilocytosis 1+ 01/13/21 22:03 Anisocytosis 1+ 01/13/21 22:03 Microcytosis Not Reportable 01/13/21 22:03 Macrocytosis Not Reportable 01/13/21 22:03 Spherocytes Not Reportable 01/13/21 22:03 Pappenheimer Bodies Not Reportable 01/13/21 22:03 Sickle Cells Not Reportable 01/13/21 22:03 Target Cells 1+ 01/13/21 22:03 Tear Drop Cells Not Reportable 01/13/21 22:03 Ovalocytes Not Reportable 01/13/21 22:03 Helmet Cells Not Reportable 01/13/21 22:03 Ca-Adel Bodies Not Reportable 01/13/21 22:03 Mosby Rings Not Reportable 01/13/21 22:03 Barb Cells Not Reportable 01/13/21 22:03 Bite Cells Not Reportable 01/13/21 22:03 Crenated Cell Not Reportable 01/13/21 22:03 Elliptocytes Not Reportable 01/13/21 22:03 Acanthocytes (Spur) Not Reportable 01/13/21 22:03 Rouleaux Not Reportable 01/13/21 22:03 Hemoglobin C Crystals Not Reportable 01/13/21 22:03 Schistocytes Not Reportable 01/13/21 22:03 Malaria parasites Not Reportable 01/13/21 22:03 Apolinar Bodies Not Reportable 01/13/21 22:03 Hem Pathologist Commnt No 01/13/21 22:03 PT 15.5 Sec. (12.2-14.9) H 01/14/21 02:19 INR 1.17 (0.87-1.13) H 01/14/21 02:19 APTT 84.9 Sec. (24.2-36.6) H* 01/14/21 02:19 Sodium 139 mmol/L (137-145) 01/14/21 02:19 Potassium 4.2 mmol/L (3.6-5.0) 01/14/21 02:19 Chloride 103.4 mmol/L (98-107) 01/14/21 02:19 Carbon Dioxide 24 mmol/L (22-30) 01/14/21 02:19 Anion Gap 16 mmol/L 01/14/21 02:19 BUN 21 mg/dL (9-20) H 01/14/21 02:19 Creatinine 0.8 mg/dL (0.8-1.3) 01/14/21 02:19 Creatinine 0.8 mg/dL (0.8-1.3) 01/14/21 02:19 Estimated GFR > 60 ml/min 01/14/21 02:19 Estimated GFR > 60 ml/min 01/14/21 02:19 BUN/Creatinine Ratio 26 % 01/14/21 02:19 Glucose 146 mg/dL (75-100) H 01/14/21 02:19 Calcium 8.9 mg/dL (8.4-10.2) 01/14/21 02:19 Total Creatine Kinase 2741 units/L (55-170) H 01/14/21 02:19 CK-MB (CK-2) 263.0 ng/mL (0.0-4.0) H 01/14/21 02:19 CK-MB (CK-2) Rel Index 9.5 (0-4) H 01/14/21 02:19 Troponin T 3.070 ng/mL (0.00-0.029) H* D 01/14/21 02:19 Triglycerides 88 mg/dL (2-149) 01/14/21 02:19 Cholesterol 218 mg/dL (50-199) H 01/14/21 02:19 LDL Cholesterol Direct 166 mg/dL (50-130) H 01/14/21 02:19 HDL Cholesterol 43 mg/dL (40-59) 01/14/21 02:19 Cholesterol/HDL Ratio 5.06 % 01/14/21 02:19 Blood Type B POSITIVE 01/13/21 22:03 Antibody Screen Negative 01/13/21 22:03 Willis/IV: Voiding Method Urinal Active Medications - Current Medications Current Medications: Generic Name Dose Route Start Last Admin Trade Name Freq PRN Reason Stop Dose Admin Acetaminophen 650 mg 01/13/21 22:21 Acetaminophen 325 Mg Tab PO Q4H PRN Pain, Mild (1-3) Hydrocodone Bitart/Acetaminophen 1 each 01/13/21 23:21 Hydrocodone/Acetaminophen 5-325 Mg Tab PO Q6H PRN Pain, Moderate (4-6) Apixaban 5 mg 01/14/21 10:00 Apixaban 5 Mg Tab PO Q12HR [facility] Protocol Aspirin 81 mg 01/14/21 10:00 Aspirin 81 Mg Tab Chew PO QDAY COOPER Atorvastatin Calcium 80 mg 01/14/21 22:00 Atorvastatin 40 Mg Tab PO QHS COOPER Carvedilol 6.25 mg 01/13/21 23:45 01/14/21 03:45 Carvedilol 6.25 Mg Tab PO 6.25 mg BID COOPER Administration Sodium Chloride 1,000 mls @ 100 mls/hr 01/13/21 23:30 01/14/21 07:46 Nacl 0.9% 1000 Ml IV 100 mls/hr DIRECT COOPER Administration Morphine Sulfate 2 mg 01/13/21 22:21 01/14/21 03:15 Morphine 2 Mg/1 Ml Inj IV 2 mg Q4H PRN Administration Pain, Moderate (4-6) Nitroglycerin 0.4 mg 01/13/21 22:21 01/14/21 05:20 Nitroglycerin 0.4 Mg Tab Subl SL 0.4 mg .Q5MIN PRN Administration Chest Pain Ticagrelor 90 mg 01/13/21 22:00 Ticagrelor 90 Mg Tab PO BID COOPER
[2021-01-14] MEDS: APIXABAN 5 MG TAB PO SCH ×2 (09:22→21:53)
[2021-01-14] MEDS: ASPIRIN 81 MG TAB CHEW PO SCH (09:23)
[2021-01-14] MEDS ORDERED: ASPIRIN EC 325 MG TAB PO SCH (10:00)
[2021-01-14] MEDS: TICAGRELOR 90 MG TAB PO SCH ×2 (10:21→21:53)
[2021-01-14 11:40] LABS: Creatine Kinase MB 303.3 ng/mL (0.0-4.0)
--- NOTE | 2021-01-14 12:38 | Consultation ---
History of Present Illness Consult date: 01/14/21 Requesting physician: JAVIER JANSEN Reason for consult: other (STEMI) History of present illness: 55 y/o male, recently diagnosed with PE up at [facility] admitted last evening with STEMI. Per patient was visiting his sisters bar and developed crushing pain. Rushed here and taken to laboratory technologist. This am better. Currently on oxygen but no chest pain. Patient is obese and a smoker. Wants to quit smoking now. Past History Past Medical History: DVT, pulmonary embolism Past Surgical History: No surgical history Social history: smoking Family history: no significant family history Medications and Allergies Allergies Allergy/AdvReac Type Severity Reaction Status Date / Time No Known Allergies Allergy Verified 01/13/21 22:12 Active Meds: Active Medications Acetaminophen (Acetaminophen 325 Mg Tab) 650 mg PO Q4H PRN PRN Reason: Pain, Mild (1-3) Hydrocodone Bitart/Acetaminophen (Hydrocodone/Acetaminophen 5-325 Mg Tab) 1 each PO Q6H PRN PRN Reason: Pain, Moderate (4-6) Apixaban (Apixaban 5 Mg Tab) 5 mg PO Q12HR COOPER; Protocol Last Admin: 01/14/21 09:22 Dose: 5 mg Documented by: Aspirin (Aspirin 81 Mg Tab Chew) 81 mg PO QDAY [facility] Last Admin: 01/14/21 09:23 Dose: 81 mg Documented by: Atorvastatin Calcium (Atorvastatin 40 Mg Tab) 80 mg PO QHS COOPER Carvedilol (Carvedilol 6.25 Mg Tab) 6.25 mg PO BID [facility] Last Admin: 01/14/21 09:23 Dose: 6.25 mg Documented by: Sodium Chloride (Nacl 0.9% 1000 Ml) 1,000 mls @ 100 mls/hr IV DIRECT [facility] Last Admin: 01/14/21 07:46 Dose: 100 mls/hr Documented by: Morphine Sulfate (Morphine 2 Mg/1 Ml Inj) 2 mg IV Q4H PRN PRN Reason: Pain, Moderate (4-6) Last Admin: 01/14/21 03:15 Dose: 2 mg Documented by: Nitroglycerin (Nitroglycerin 0.4 Mg Tab Subl) 0.4 mg SL .Q5MIN PRN PRN Reason: Chest Pain Last Admin: 01/14/21 05:20 Dose: 0.4 mg Documented by: Ticagrelor (Ticagrelor 90 Mg Tab) 90 mg PO BID COOPER Last Admin: 01/14/21 10:21 Dose: 90 mg Documented by: Review of Systems All systems: negative Physical Examination Vital signs: Vital Signs Pulse Resp BP Pulse Ox 84 18 186/99 99 01/13/21 22:03 01/13/21 22:03 01/13/21 22:03 01/13/21 22:03 General appearance: no acute distress, alert, other (obese white male) Eyes: non-icteric ENT: oropharynx moist Neck: supple, other (large in circumference) Effort: normal Ascultation: Bilateral: clear Percussion: Bilateral: not dull Tactile fremitus: Bilateral: normal Cardiovascular: regular rate and rhythm Gastrointestinal: normoactive bowel sounds, soft, non-tender Extremities: no edema, pink and warm, pulses normal Results - Laboratory Findings CBC and BMP: 01/14/21 02:19 01/14/21 02:19 PT/INR, D-dimer PT 15.5 Sec. (12.2-14.9) H 01/14/21 02:19 INR 1.17 (0.87-1.13) H 01/14/21 02:19 Abnormal lab findings: Abnormal Labs 01/13/21 01/13/21 01/14/21 22:03 22:03 02:19 WBC 12.2 H RBC 5.36 H Hgb 15.6 H Hct 46.8 H RDW 15.3 H Lymph % (Auto) [place] # (Auto) Seg Neutrophils % Lymphocytes % (Manual) 48.0 H Monocytes % (Manual) 8.0 H Seg Neutrophils # Lymphocytes # (Manual) 5.9 H Monocytes # (Manual) 1.0 H PT 15.5 H INR 1.17 H APTT 84.9 H* BUN 22 H Glucose 158 H Total Creatine Kinase 279 H CK-MB (CK-2) CK-MB (CK-2) Rel Index Troponin T Cholesterol LDL Cholesterol Direct 01/14/21 01/14/21 01/14/21 02:19 02:19 09:55 WBC 16.5 H RBC 5.14 H Hgb Hct RDW 15.6 H Lymph % (Auto) 12.4 L [place] # (Auto) 0.9 H Seg Neutrophils % 81.4 H Lymphocytes % (Manual) Monocytes % (Manual) Seg Neutrophils # 13.5 H Lymphocytes # (Manual) Monocytes # (Manual) PT INR APTT BUN 21 H Glucose 146 H Total Creatine Kinase 2741 H 3363 H CK-MB (CK-2) 263.0 H 303.3 H CK-MB (CK-2) Rel Index 9.5 H 9.0 H Troponin T 3.070 H* D 4.980 H* D Cholesterol 218 H LDL Cholesterol Direct 166 H - Diagnostic Findings Chest x-ray: image reviewed Assessment and Plan 55 y/o male with STEMI, tobacco abuse and obesity. 1. ASA, statin, BB, Gama therapy 2. Will stop IVF's 3. Will add nicoderm patch while in house 4. Patient willing to take meds to quit, can be done as outpatient 5. Appear stable for transfer to telemetry floor.
--- NOTE | 2021-01-14 16:42 | Progress Note ---
Assessment and Plan Impressions 1. Acute anterior ST elevation [place] 2. Coronary angioplasty status status post primary PCI of the 100% occluded LAD 3. Coronary angioplasty status status post PCI of the OM 4. History of recent PE on maintenance Eliquis therapy 5. Hyperlipidemia 6. Morbid obesity 7. Tobacco use Plan Continue aspirin, Brilinta, and atorvastatin. Increase carvedilol to 12.5 mg p.o. twice daily. Continue Eliquis. Patient will need to be on triple therapy for at least a month including aspirin Brilinta and Eliquis. After a month, discontinuing aspirin can be considered with maintenance regimen of Brilinta and Eliquis. Advised on importance of compliance with medication and follow-up. May transfer to telemetry floor from cardiac standpoint. Subjective Date of service: 01/14/21 Interval history: No chest pain or shortness of breath. Telemetryreviewed, sinus rhythm Objective Vital Signs Temp Pulse Resp BP Pulse Ox 01/14/21 14:00 63 12 138/83 95 01/14/21 13:49 64 01/14/21 13:26 73 01/14/21 13:00 136/73 96 01/14/21 12:00 98.6 F 61 146/93 98 01/14/21 11:01 63 16 124/54 95 01/14/21 10:01 77 11 L 154/90 95 01/14/21 09:23 95 H 154/90 01/14/21 09:00 72 17 154/90 95 01/14/21 08:07 99.4 F 01/14/21 08:01 68 19 157/90 96 01/14/21 08:00 74 01/14/21 07:51 92 H 13 133/83 96 01/14/21 07:41 88 14 133/83 97 01/14/21 07:40 96 01/14/21 07:31 74 11 L 133/83 98 01/14/21 07:21 76 15 133/83 97 01/14/21 07:11 68 16 133/83 98 01/14/21 07:00 70 12 133/83 98 01/14/21 06:51 69 13 118/68 97 01/14/21 06:41 67 14 118/68 97 01/14/21 06:31 85 14 118/68 97 01/14/21 06:21 71 15 118/68 97 01/14/21 06:11 70 18 118/68 96 01/14/21 06:01 67 14 118/68 97 01/14/21 05:51 64 13 130/60 96 01/14/21 05:41 67 13 130/60 94 01/14/21 05:31 77 16 130/60 90 01/14/21 05:21 76 11 L 123/71 93 01/14/21 05:20 77 123/71 01/14/21 05:13 78 163/84 01/14/21 05:11 98.3 F 94 H 14 163/84 93 01/14/21 05:06 82 179/95 01/14/21 05:01 95 H 14 179/95 93 01/14/21 04:51 80 14 135/83 92 01/14/21 04:41 79 18 135/83 94 01/14/21 04:31 83 15 135/83 91 01/14/21 04:21 72 12 135/83 92 01/14/21 04:11 75 16 135/83 94 01/14/21 04:01 156/84 95 01/14/21 04:00 93 01/14/21 03:51 95 H 16 135/83 97 01/14/21 03:45 92 H 135/58 01/14/21 03:41 97 H 18 135/83 96 01/14/21 03:31 77 12 135/83 97 01/14/21 03:21 81 20 135/83 97 01/14/21 03:11 82 16 135/83 97 01/14/21 03:00 77 12 135/83 98 01/14/21 02:51 81 14 136/77 95 01/14/21 02:41 89 8 L 136/77 97 01/14/21 02:31 85 16 136/77 96 01/14/21 02:21 98 H 16 136/77 97 01/14/21 02:11 83 13 136/77 97 01/14/21 02:00 86 16 136/77 95 01/14/21 01:51 91 H 17 141/84 96 01/14/21 01:41 84 14 141/84 94 01/14/21 01:31 93 H 14 141/84 95 01/14/21 01:21 90 15 141/84 94 01/14/21 01:11 98.8 F 107 H 18 141/84 93 01/14/21 01:01 110 H 18 142/93 97 01/14/21 00:51 99 H 19 142/93 97 01/14/21 00:41 98 H 11 L 142/93 97 01/14/21 00:31 97 H 17 93 01/14/21 00:27 101 H 01/14/21 00:10 61 15 164/84 97 01/14/21 00:00 62 15 164/84 96 01/13/21 23:50 66 12 160/90 98 01/13/21 22:03 84 18 186/99 99 - Physical Examination Narrative exam: Gen-NAD, comfortable Neck-supple, no JVD CV-RRR, no murmurs Lungs-CTAB Abd-soft/nt/nd, obese Ext-warm to touch, no edema Neuro-alert and oriented, no gross focal deficits Psych-affect normal - Labs and Meds Cardiac Enzymes 01/13/21 01/14/21 01/14/21 Range/Units 22:03 02:19 09:55 CK-MB (CK-2) 2.2 263.0 H 303.3 H (0.0-4.0) ng/mL Coagulation 01/13/21 01/14/21 Range/Units 22:03 02:19 PT 13.3 15.5 H (12.2-14.9) Sec. INR 0.95 1.17 H (0.87-1.13) APTT 25.7 84.9 H* (24.2-36.6) Sec. Lipids 01/14/21 Range/Units 02:19 Triglycerides 88 (2-149) mg/dL Cholesterol 218 H (50-199) mg/dL HDL Cholesterol 43 (40-59) mg/dL Cholesterol/HDL Ratio 5.06 % CBC 01/13/21 01/14/21 Range/Units 22:03 02:19 WBC 12.2 H 16.5 H (4.5-11.0) K/mm3 RBC 5.36 H 5.14 H (3.65-5.03) M/mm3 Hgb 15.6 H 15.1 (11.8-15.2) gm/dl Hct 46.8 H 45.4 (35.5-45.6) % Plt Count 313 258 (140-440) K/mm3 Lymph # (Auto) [place]illet Grinder 2.0 [place] # (Auto) 0.9 H (0.0-0.8) K/mm3 Eos # (Auto) 0.0 (0.0-0.4) K/mm3 Baso # (Auto) 0.1 (0.0-0.1) K/mm3 Comprehensive Metabolic Panel 01/13/21 01/14/21 01/14/21 Range/Units 22:03 02:19 02:19 Sodium 141 139 (137-145) mmol/L Potassium 3.9 4.2 (3.6-5.0) mmol/L Chloride 103.3 103.4 (98-107) mmol/L Carbon Dioxide 26 24 (22-30) mmol/L BUN 22 H 21 H (9-20) mg/dL Creatinine 0.9 0.8 0.8 (0.8-1.3) mg/dL Glucose 158 H 146 H (75-100) mg/dL Calcium 9.7 8.9 (8.4-10.2) mg/dL
[2021-01-14] MEDS ORDERED: carvediloL 12.5 MG TAB PO SCH (22:00)
[2021-01-15 06:30] LABS: Hematocrit 44.2 % (35.5-45.6); Mean Corpuscular HGB Conc 34 % (32-34); Mean Corpuscular Volume 87 fl (84-94); Platelet Count 249 K/mm3 (140-440); Red Blood Count 5.09 M/mm3 (3.65-5.03); Red Cell Distribution Width 15.6 % (13.2-15.2)
[2021-01-15] MEDS ORDERED: CLOPIDOGREL 300 MG TAB PO NR (10:30)
--- NOTE | 2021-01-15 10:40 | Electrocardiograph Report ---
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
--- NOTE | 2021-01-15 10:43 | Electrocardiograph Report ---
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
--- NOTE | 2021-01-15 10:47 | Electrocardiograph Report ---
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
--- NOTE | 2021-01-15 10:48 | Electrocardiograph Report ---
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 Electronically Signed On 01-15-2021 10:48:26 EDT by Johnnie Henley
[2021-01-15] MEDS: APIXABAN 5 MG TAB PO SCH (11:45)
--- NOTE | 2021-01-15 12:26 | Progress Note ---
Assessment and Plan - Patient Problems (1) STEMI (ST elevation myocardial infarction) Current Visit: Yes Status: Acute Plan to address problem: 55-year-old man admitted with an anterior wall STEMI, treated with coronary stenting of the infarct lesion in the LAD as well as a secondary stenosis of the circumflex artery. Post intervention course has been stable and asymptomatic. He reports that 2 months ago he was treated at [facility] for an acute pulmonary embolism, and has been on Eliquis for this indication. We will therefore treat with triple therapy of Eliquis, baby aspirin and clopidogrel. I have discontinued ticagrelor and substituted clopidogrel to decrease his bleeding risk. Otherwise, patient is stable for cardiac discharge on guideline directed medical therapy as outlined. An echocardiogram has been completed today and will be r eported prior to discharge. Subjective Date of service: 01/15/21 Interval history: Patient looks and feels better, no chest pain, no acute distress, he is looking forward to going home today. Objective Vital Signs Temp Pulse Pulse Resp BP Pulse Ox 01/15/21 07:53 97.9 F 88 20 141/76 94 01/15/21 04:01 99.0 F 81 16 117/71 94 01/15/21 04:00 85 01/15/21 00:00 89 89 141/78 95 01/14/21 23:39 99.9 F H 76 16 107/56 93 01/14/21 21:52 79 141/78 01/14/21 21:51 77 16 141/78 93 01/14/21 21:41 83 18 141/78 94 01/14/21 21:31 141/78 93 01/14/21 21:23 141/78 94 01/14/21 21:05 90 10 L 141/78 93 01/14/21 21:01 87 17 141/78 93 01/14/21 20:00 101.8 F H 84 79 31 H 124/67 93 01/14/21 19:00 82 21 131/85 96 01/14/21 18:00 77 17 121/65 93 01/14/21 17:01 83 16 125/60 92 01/14/21 16:42 74 01/14/21 16:01 66 19 130/78 95 01/14/21 16:00 100.3 F H 95 01/14/21 15:00 70 11 L 138/83 93 01/14/21 14:00 63 12 138/83 95 01/14/21 13:49 64 01/14/21 13:26 73 01/14/21 13:00 136/73 96 - Physical Examination General: Appears Well, No Apparent Distress HEENT: Positive: Normocephaly Neck: Positive: trachea midline Cardiac: Positive: Reg Rate and Rhythm Lungs: Positive: Decreased Breath Sounds Neuro: Positive: Grossly Intact Abdomen: Positive: Soft Skin: Positive: Clear Extremities: Absent: edema - Labs and Meds CBC 01/15/21 Range/Units 05:42 WBC 14.3 H (4.5-11.0) K/mm3 RBC 5.09 H (3.65-5.03) M/mm3 Hgb 15.0 (11.8-15.2) gm/dl Hct 44.2 (35.5-45.6) % Plt Count 249 (140-440) K/mm3
[2021-01-15] MEDS: ASPIRIN 81 MG TAB CHEW PO SCH (12:30)
--- NOTE | 2021-01-15 13:58 | Discharge Summary ---
Providers - Providers Date of Admission: 01/14/21 01:10 Date of discharge: 01/15/21 Attending physician: MADDIE ARCHIBALD 01/13/21 Consult to Cardiac Rehabilitation [CONS] Routine Reason For Exam: Phase 1 Consult to Cardiac Rehabilitation [CONS] Routine Reason For Exam: post pci 01/13/21 22:01 Consult to Physician [CONS] Urgent Comment: Dr. Patel spoke with Dr. Cohen @ [id number] Consulting Provider: JO ANN COHEN Physician Instructions: Reason For Exam: stemi 01/13/21 22:02 Consult to Physician [CONS] Urgent Comment: Dr. Patel spoke with Dr. Cohen @ 2204 Consulting Provider: JAVIER JANSEN Physician Instructions: Reason For Exam: stemi 01/13/21 22:21 Consult to Cardiology [CONS] Routine Consulting Provider: JAVIER JANSEN Reason For Exam: ST elevation AL Primary care physician: AUDIO VISUAL MANAGER Hospitalization Reason for admission: Central and left-sided severe chest pain/ST elevation AL Condition: Stable Pertinent studies: Echocardiogram: LVEF 20 to 25%, left ventricle moderately dilated Chest x-ray mildly diminished lung volume Linear metallic structure overlies the right heart uncertain etiology Procedures: Emergency left heart catheterization s/p coronary angioplasty and PCI of LAD s/p coronary angioplasty and PCI of OM Hospital course: 55-year-old male patient with significant history of DVT pulmonary embolism on Eliquis was admitted through emergency room with sudden excruciating central and left-sided chest pain associated with nausea vomiting diaphoresis initial evaluation in the ED is consistent with high lateral STEMI emblem cutter has evaluated and patient had emergency left heart catheterization status post stent placement as mentioned above patient was admitted to ICU for close monitoring of the patient subsequently evaluated by pulmonary and medications optimized., Patient was a placed on dual antiplatelet therapy and with aspirin and Plavix as well as chronic anticoagulation with Eliquis for his DVT and PE patient was closely monitored for any evidence of bleeding patient symptoms slowly but gradually improved today he is comfortable no new complaints vital signs stable, physical examination prior to discharge is unremarkable, Patient is hemodynamically and clinically stable for discharge, All the consultants cleared the patient for discharge and follow-up in their offices for further evaluation and management Patient also advised to comply with medications diet and follow-up visits Patient counseled and advised dietary modification exercise as tolerated and weight reduction Also advised to follow-up with bariatric surgical consultation for weight reduction program when patient is medically stable today patient's vital signs are stable physical physical examination prior to discharge did not show any new changes hemodynamically and clinically stable at discharge with follow-up visits to primary care physician, emblem cutter, pulmonary per schedule patient verbalized instructions and agreed to comply with medications diet follow-up visits patient strongly advised smoking cessation and nicotine patch as needed Discharge diagnosis: -- STEMI (acute anterior ST elevation myocardial infarction) Acute anterior ST elevation AL; Patient had emergency left heart catheterization s/p coronary angioplasty and PCI of LAD s/p coronary angioplasty and PCI of OM Cardiology recommend triple therapy, aspirin, Plavix and Eliquis for at least 1 month Aspirin can be discontinued after 1 month and to continue Brilinta and Eliquis per protocol High intensity statins,Cardiac diet --Ischemic cardiomyopathy; EF 20 to 25%: continue antifailure medications Diuretics, beta-blockers, ADRY inhibitors Input output monitoring, low-sodium diet and fluid restriction --Acute systolic congestive heart failure EF 20 to 25% continue antifailure medications Diuretics, beta-blockers, ADRY inhibitors Input output monitoring, low-sodium diet and fluid restriction --h/o Pulmonary embolism and DVT Current visit : yes status: Chronic Continue Eliquis along with Brilinta and aspirin per cardiology[3 drugs for 1 month] DC aspirin after 1 month --Hypertension; moderate control Current visit :yes status: Chronic continue current antihypertensives and as needed medications --Dyslipidemia; Current visit ; yes status: Chronic Continue statin, low-cholesterol diet, --Obesity; BMI 38.6 Current visit ; yes status: Chronic Patient needs dietary modification exercise as tolerated and weight reduction when medically stable Out patient pulmonary evaluation to rule out obstructive sleep apnea May benefit from outpatient bariatric surgery consultation for weight reduction, when medically stable Cleared by all the consultants for discharge and follow-up as outpatient Stable at discharge Disposition: 01 HOME / SELF CARE / HOMELESS Final Discharge Diagnosis (Prints w/discharge instructions): STEMI. s/p PCI of LAD, PCI of OM. Ischemic cardiomyopathy EF 20 to 25%. Acute systolic congestive heart failure EF 20%-25%. History of pulmonary embolism. History of lower extremity DVT. Hypertension. Dyslipidemia. Obesity BMI 38.6 Time spent for discharge: 35 min Core Measure Documentation - Palliative Care Palliative Care/ Comfort Measures: Not Applicable - Core Measures Any of the following diagnoses?: acute AL, heart failure - Acute AL Discharge Requirements Aspirin at discharge: Yes ADRY/ARB for LVSD if EF <40%: Yes Beta gabriel at discharge: Yes Statin for LDL = or >100 mg/dl on DC: Yes - Heart Failure Discharge Requirements ADRY/ARB for LVSD if EF <40%: Yes Beta gabriel at discharge: Yes Exam - Constitutional Vitals: Temp Pulse Resp BP Pulse Ox 97.9 F 88 20 141/76 94 01/15/21 07:53 01/15/21 07:53 01/15/21 07:53 01/15/21 07:53 01/15/21 07:53 General appearance: Present: no acute distress, well-nourished - EENT Eyes: Present: PERRL, EOM intact - Neck Neck: Present: supple, normal ROM - Respiratory Respiratory effort: normal Respiratory: bilateral: diminished, negative: rales, rhonchi, wheezing - Cardiovascular Rhythm: regular Heart Sounds: Present: S1 & S2 - Extremities Extremities: no ischemia, No edema - Abdominal General gastrointestinal: Present: soft, non-tender, non-distended - Integumentary Integumentary: Present: clear, warm - Musculoskeletal Musculoskeletal: strength equal bilaterally, generalized weakness - Psychiatric Psychiatric: appropriate mood/affect, cooperative - Neurologic Neurologic: CNII-XII intact, moves all extremities Plan Activity: advance as tolerated, fall precautions Diet: low salt, other (Cardiac diet) Special Instructions: smoking cessation Additional Instructions: Advised smoking cessation, nicotine patch as needed. If you have worsening symptoms contact MD or go to emergency room as needed. Advised to follow primary care physician, emblem cutter per schedule. Advised weight reduction when medically stable Follow up with: PRIMARY MD EPI [Primary Care Provider] - 3-5 Days CISCO LEE MD [Staff Physician] - 7 Days Prescriptions: Aspirin [Aspirin BABY CHEW TAB] 81 mg PO QDAY #30 tab.chew Apixaban [Eliquis] 5 mg PO Q12HR #60 tablet Nicotine [Habitrol] 14 mg TD DAILY #30 patch AtorvaSTATin [Lipitor] 80 mg PO QHS #30 tablet Metoprolol [Lopressor TAB] 25 mg PO Q8H #60 tablet Nitroglycerin [Nitrostat] 0.4 mg SL Q6H PRN #20 tablet PRN Reason: Chest Pain HYDROcodone/APAP 5-325 [Cos Cob 5-325 mg TAB] 1 each PO BID PRN #10 tablet PRN Reason: Pain, Moderate (4-6) Clopidogrel [Plavix] 75 mg PO QDAY #30 tablet Lisinopril [Zestril] 5 mg PO DAILY #30 tablet
[2021-01-15] MEDS ORDERED: METOPROLOL TARTRATE 25 MG TAB PO SCH (14:00)
[2021-01-15 17:05] VITALS: BP 132/78
[2021-01-16] MEDS ORDERED: CLOPIDOGREL 75 MG TAB PO SCH (10:00)
--- NOTE | 2021-01-17 13:50 | XRay Report ---
CHEST 1 VIEW INDICATION: chest pain; post pci. COMPARISON: None. FINDINGS: Support devices: None. Heart: Within normal limits. Lungs/Pleura: No acute air space or interstitial disease. Lung volumes mildly diminished. Additional findings: Linear metallic structure overlies the right heart. IMPRESSION: 1. Mildly diminished lung volumes. 2. Linear metallic structure overlies the right heart. This is of uncertain etiology. Signer Name: Ricardo Proctor MD Signed: 01/17/2021 1:45 PM Workstation Name: [id number]
--- NOTE | 2021-01-24 12:49 | Cardiac Catherization Report ---
DATE OF PROCEDURE: 01/13/2021 CORONARY ANGIOGRAM AND PERCUTANEOUS INTERVENTION REPORT PROCEDURES PERFORMED: 1. Selective left and right coronary angiograms. 2. Left ventriculogram. 3. Successful percutaneous intervention of the LAD and the circumflex. ELECTRICAL MANUFACTURING TECHNICIAN: Sina Meléndez M.D. INDICATIONS: Acute anterior wall ST elevation myocardial infarction. PROCEDURE DETAILS: 1. The patient was prepped and draped in a sterile fashion after informed consent. 2. The right groin was anesthetized using local Lidocaine infiltration. 3. The right radial artery was entered using the Seldinger technique, followed by the placement of a 6-[place] sheath. 4. Selective left and right coronary angiography was performed using 6-[place] Cookie catheters. Angiograms were done in multiple projections. 5. Selective left ventricular angiography was done using a 6-[place] pigtail catheter. Left ventricular angiography was performed in the right anterior oblique projection. 6. The catheters were withdrawn, the sheath removed, and hemostasis was achieved. 7. The patient was transferred to the post cardiac catheterization unit in stable condition. There were no complications, equipment malfunction, or technical difficulties. FINDINGS: HEMODYNAMICS: 1. AO 131/90, LV 131/30, LVEDP was 30. No significant gradients across the aortic valve. 2. Left ventriculogram done in 30-degree COOK projection was suboptimal; however, EF appears to be preserved at 50-55%. ANGIOGRAM DETAILS: 1. Left main is angiographically normal. 2. LAD is 100% occluded in the mid portion. 3. Circumflex is a medium to large caliber vessel. There are few small OMs. The only significant OM has tandem lesions with a distal stenosis of around 80%. 4. The right coronary artery is large, dominant, eccentric 20-30% proximal stenosis is noted. IMPRESSION: 1. A 100% occlusion of the left anterior descending. 2. Critical 80% stenosis of the obtuse marginal. 3. Mild stenosis of the right coronary artery. 4. Preserved left ventricular systolic function. PLAN: Proceed with PCI of the LAD and the circumflex. PERCUTANEOUS INTERVENTION DETAILS: Intravenous heparin was used to maintain therapeutic ACT. Intravenous Aggrastat was not used as the patient is on Eliquis and just a few hours before the procedure had Eliquis. An XB 3.5 guide catheter was used to engage the left main coronary artery. A BMW wire was used as a standard guidewire. After crossing the lesion, after initial predilatation, a 3.5 x 18 mm Resolute [place] drug-eluting stent was deployed in the mid LAD. This was then postdilated with a 4.0 balloon with excellent result. No residual stenosis, thrombus or dissection noted. The guidewire was then redirected into the OM and after initial predilatation, a 3.0 x 26 mm Resolute [place] drug-eluting stent was deployed in the proximal OM. This was then postdilated with a 3.5 mm balloon with excellent result. Angiogram revealed excellent result with no residual stenosis or dissection. The guide and wire were removed. The patient was given 180 mg of Brilinta. TR band was applied. FINDINGS: 1. Status post successful PCI of 100% occluded LAD with the deployment of 3.5 x 18 mm Resolute drug-eluting stent. 2. Successful PCI of the OM with deployment of 3.0 x 26 mm Resolute drug-eluting stent. PLAN: 1. Aspirin for life. 2. Brilinta for 1 year, preferably more. 3. Routine adjuvant pharmacotherapy post-PCI. TID: [id number] RECEIPT: [id number] VINAY/DONALDO/KRISS
== END 2021-01-15 17:08 | disposition home or self-care (01) | DRG 246 ==
LOC: ED 21:53 → CC1 01-14 01:10 → 4A 01-14 22:58
PROVIDERS: ADMIT Hospitalist; ATTEND Internal Medicine
PROC: 4A023N7 Measurement of Cardiac Sampling and Pressure, Left Heart, Percutaneous Approach (ICD-10-PCS; principal; 2021-01-14)
PROC: 027135Z Dilation of Coronary Artery, Two Arteries with Two Drug-eluting Intraluminal Devices, Percutaneous Approach (ICD-10-PCS; 2021-01-14)
PROC: 02C03ZZ Extirpation of Matter from Coronary Artery, One Artery, Percutaneous Approach (ICD-10-PCS; 2021-01-14)
PROC: B2151ZZ Fluoroscopy of Left Heart using Low Osmolar Contrast (ICD-10-PCS; 2021-01-14)
PROC: B2111ZZ Fluoroscopy of Multiple Coronary Arteries using Low Osmolar Contrast (ICD-10-PCS; 2021-01-14)
DX: I21.09 ST elevation (STEMI) myocardial infarction involving other coronary artery of anterior wall (principal); I50.21 Acute systolic (congestive) heart failure; E66.01 Morbid (severe) obesity due to excess calories; Z68.38 Body mass index [BMI] 38.0-38.9, adult; F17.200 Nicotine dependence, unspecified, uncomplicated; E78.5 Hyperlipidemia, unspecified; I25.5 Ischemic cardiomyopathy; I11.0 Hypertensive heart disease with heart failure; Z86.711 Personal history of pulmonary embolism; Z86.718 Personal history of other venous thrombosis and embolism
CPT/HCPCS: 36415; 71045; 80048; 80061; 82550; 82553; 82565; 84484; 85007; 85014; 85018; 85025; 85027; 85610; 85730; 86850; 86900; 86901; 92929; 92941; 93005; 93306; 93458; 99406; G0378; C1725; C1769; C1874; C1887; C1894; C9601; C9606; J0171; J0461; J1644; J2001; J2250; J2270; J2370; J2405; J3010; J7030; Q9967